=== PATIENT | female | born 2005 | race Two or more races ===

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

== ENCOUNTER 2024-03-19 20:47 | Emergency (ER) | payer MEDICAID ==
[~2024-03-19] VITALS: Ht 160 cm; Wt 70.4 kg
[~2024-03-19 20:47] MED LIST: ZOFR4T PO
[2024-03-19 21:30] LABS: Basophils # (auto) 0.1 10 ^3/uL (0-0.2); Basophils % (auto) 0.7 % (0.0-2.0); Eosinophils # (auto) 0.3 10 ^3/uL (0-0.8); Eosinophils % (auto) 2.3 % (0.0-7.0); Hematocrit 39.7 % (36.0-46.0); Hemoglobin 12.4 g/dL (12.2-16.2); Lymphocytes # (auto) 2.3 10 ^3/uL (0.4-5.4); Lymphocytes % (auto) 20.6 % (10.0-50.0); Mean Corpuscular Hemoglobin 25.5 pg (28.0-32.0); Mean Corpuscular Hgb Conc. 31.3 g/dL (32.0-36.0); Mean Corpuscular Volume 81.3 fL (80.0-100.0); Monocytes # (auto) 0.5 10 ^3/uL (0-1.3); Monocytes % (auto) 4.4 % (0.0-12.0); Neutrophils # (auto) 8.1 10 ^3/uL (1.6-8.6); Red Blood Cells 4.88 10^6/uL (4.0-5.20); Red Cell Distribution Width 15.6 % (11.8-14.3); White Blood Cell 11.3 10^3/uL (4.4-10.8)
[2024-03-19 21:41] LABS: Urine Bacteria None Seen /hpf (None Seen)
[2024-03-19 21:42] LABS: Alanine Aminotransferase 24 U/L (7-40); Albumin 4.7 g/dL (3.2-4.8); Alkaline Phosphatase 116 U/L (46-116); Anion Gap 8 (5-15); Aspartate Aminotransferase 23 U/L (13-40); BUN/Creatinine Ratio 17.3 (10.0-20.0); Bilirubin, Total 0.3 mg/dL (0.2-1.0); Blood Urea Nitrogen 14 mg/dL (9-23); Calcium 9.8 mg/dL (8.5-10.1); Carbon Dioxide 25 mmol/L (20-30); Chloride 106 mmol/L (98-107); Glucose 111 mg/dL (74-106); Potassium 3.5 mmol/L (3.5-5.1); Sodium 139 mmol/L (136-145); Total Protein 7.3 g/dL (5.7-8.2)
[2024-03-19 21:54] LABS: Urine Blood Negative /uL (Negative); Urine Clarity Clear (Clear); Urine Color Light-Yellow (Yellow); Urine Protein, UAD Negative (Negative); Urine Specific Gravity 1.021 (1.001-1.035); Urine Urobilinogen Normal (Negative); Urine WBC <1 /hpf (0 - 5); Urine pH 6.5 (5.0-9.0)
[2024-03-20 02:28] VITALS: BP 106/71; PULSE 83; RESP 18; TEMP 98.3; O2SAT 98
== END 2024-03-20 04:37 | disposition left against medical advice (07) ==
LOC: ER 20:47
DX: R07.89 Other chest pain (principal); R06.02 Shortness of breath; R00.2 Palpitations; Z53.21 Procedure and treatment not carried out due to patient leaving prior to being seen by health care provider
CPT/HCPCS: 36415; 71046; 80053; 81001; 83735; 84443; 84484; 85025

== ENCOUNTER 2024-07-02 04:46 | Emergency (ER) | payer MEDICAID ==
[~2024-07-02] VITALS: Ht 160 cm; Wt 68.3 kg
[~2024-07-02 04:46] MED LIST changes: +EPIN0.1I11 IJ; +PRED20TA2 PO
[2024-07-02 05:03] VITALS: RESP 17; TEMP 98.2
[2024-07-02] MEDS ORDERED: CEPH500C PO (06:43)
[2024-07-02] MEDS ORDERED: TRIA0.02 TOP (06:43)
[2024-07-02 06:45] VITALS: BP 102/65; PULSE 77; O2SAT 97
== END 2024-07-02 06:49 | disposition home or self-care (01) ==
LOC: ER 04:46
DX: T63.481A Toxic effect of venom of other arthropod, accidental (unintentional), initial encounter (principal); Z88.8 Allergy status to other drugs, medicaments and biological substances; Z79.899 Other long term (current) drug therapy; Y92.89 Other specified places as the place of occurrence of the external cause